=== PATIENT | female | born 1950 | race Caucasian/White ===

== ENCOUNTER 2017-05-17 07:58 | Emergency (ER) | payer MEDICARE, BC ==
[2017-05-17] MEDS ORDERED: Dexamethasone 4 MG TAB ONE (08:38)
== END 2017-05-17 09:00 | disposition home or self-care (01) ==
LOC: MADERS 07:58
DX: S16.1XXA Strain of muscle, fascia and tendon at neck level, initial encounter (principal); Z87.891 Personal history of nicotine dependence; Z79.899 Other long term (current) drug therapy; X58.XXXA Exposure to other specified factors, initial encounter
CPT/HCPCS: 99283; J8540

== ENCOUNTER 2018-10-24 12:33 | Emergency (ER) | payer MEDICARE | END 2018-10-24 13:10 | disposition home or self-care (01) | LOC: MADERS 12:33 | DX: T78.40XA Allergy, unspecified, initial encounter (principal); Z87.891 Personal history of nicotine dependence; Z79.899 Other long term (current) drug therapy | CPT/HCPCS: 99282 ==

== ENCOUNTER 2024-05-01 13:23 | Emergency (ER) | payer MEDICARE ==
[2024-05-01] MEDS ORDERED: Clindamycin 150 MG CAP ONE (13:44)
[2024-05-01] MEDS ORDERED: Ibuprofen 600 MG TAB ONE (13:44)
== END 2024-05-01 13:58 | disposition home or self-care (01) ==
LOC: MADERS 13:23
DX: K04.7 Periapical abscess without sinus (principal); I10 Essential (primary) hypertension; Z79.899 Other long term (current) drug therapy; Z87.891 Personal history of nicotine dependence
CPT/HCPCS: 99282